=== PATIENT | male | born 1940 | race Caucasian/White ===

== ENCOUNTER 2019-10-01 08:48 | Outpatient (CLI) | payer MEDICARE ==
[2019-10-01] VITALS (15 sets, daily range): BP systolic 115–128; BP diastolic 63–84; PULSE 50–69
[~2019-10-01] VITALS: Ht 188 cm; Wt 72.6 kg
[~2019-10-01 08:48] MED LIST: LASIX 20MG TABL20 MG PO; LIPITOR 40MG TA40 MG PO; PRESERVISION1 SGL PO; XANAX 0.5MG0.5 MG PO
--- NOTE | 2019-10-01 10:00 | NUR ---
pt to ct per ambulation, pt positioned in prone position on ct table. O2 on at 2l/nc. Pt placed on monitors.
--- NOTE | 2019-10-01 10:28 | NUR ---
Specimens obtained and placed in formalin by Dr Saha. Specimen labeled.
--- NOTE | 2019-10-01 13:30 | NUR ---
PT has done well during post procedure period, he has been free of complaint of pain, sob, cp. His vital signs have been stable with no changes. he remains p,w,d with reg and unlabored resps, ls clear in upper ko Pt has been ambulatory in room since having chest xray, radiologist passed message through charge nurse that pt was cleared to go home. Pt denied any questions about discharge material, he has been able to drink with no problem. He is escorted to exit in wheelchair.
== END 2019-10-01 15:45 | disposition home or self-care (01) ==
LOC: COL.RAD 08:48
DX: I51.7 Cardiomegaly (principal); J98.59 Other diseases of mediastinum, not elsewhere classified; D64.9 Anemia, unspecified